=== PATIENT | male | born 1970 | race Two or more races ===

== ENCOUNTER 2024-04-18 11:14 | Inpatient (IN) | payer SELFPAY ==
[~2024-04-18] VITALS: Ht 170.2 cm; Wt 110.7 kg
[2024-04-18 11:17] VITALS: O2SAT 98
[2024-04-18] MEDS: ASPIRIN 81MG TABLET PO ONE (12:22)
[2024-04-18 12:39] LABS: CHLORIDE 101 mEq/L (98-107); POTASSIUM 3.9 mEq/L (3.5-5.1); SODIUM 134 mEq/L (136-145)
[2024-04-18 12:40] LABS: BASOPHILS % 0.4 % (0.0-2.0); CALCIUM 8.9 mg/dL (8.7-10.4); CARBON DIOXIDE 22 mEq/L (21-32); EOSINOPHILS % 0.2 % (0.0-5.0); HEMATOCRIT. 46.2 % (42.0-52.0); LYMPHOCYTES % 19.8 % (20.0-50.0); MEAN CORPUSCULAR HEMOGLOBIN 29.3 pg (28.0-32.0); MEAN CORPUSCULAR HGB CONC 32.5 g/dL (31.0-37.0); MEAN CORPUSCULAR VOLUME 90.3 fL (80.0-94.0); NEUTROPHILS % 66.6 % (40.0-76.0); PLATELET 383 x1000/uL (130-400); RED BLOOD CELL COUNT 5.12 mill/uL (4.7-6.1); WHITE BLOOD COUNT 9.4 x1000/uL (4.5-11.0)
[2024-04-18 12:45] LABS: CREATININE 1.2 mg/dL (0.6-1.3); GLUCOSE 120 mg/dL (70-105); TROPONIN I HIGH SENSITIVITY 14 ng/L (3.0-53); UREA NITROGEN BLOOD 13 mg/dL (9-23)
[2024-04-18 17:59] VITALS: BP 117/91; PULSE 107; RESP 18; TEMP 36.974
[2024-04-18 20:00] VITALS: BP 120/87; PULSE 108; RESP 18; TEMP 35.94732; O2SAT 97
[2024-04-18] MEDS ORDERED: GUAIFENESIN 200MG/10ML SUGAR FREE UDC PO PRN (21:45)
[2024-04-18] MEDS ORDERED: ACETAMINOPHEN 325MG TABLET PO PRN ×2 (21:45)
[2024-04-18] MEDS ORDERED: ONDANSETRON HCL 4MG/2ML INJ IV PRN (21:45)
[2024-04-18] MEDS ORDERED: IPRATROPIUM/ALBUTEROL 0.5-3(2.5)MG/3ML NEB HHN PRN (21:45)
[2024-04-18] MEDS ORDERED: IOHEXOL-350 100 ML BOTTLE ONE (23:19)
[2024-04-18 23:53] LABS: TROPONIN I HIGH SENSITIVITY 15 ng/L (3.0-53)
[2024-04-19] VITALS: BP 122/91; PULSE 102; RESP 19; TEMP 36.05844; O2SAT 96
[2024-04-19 04:00] VITALS: BP 120/89; PULSE 109; RESP 18; TEMP 36.3918; O2SAT 98
[2024-04-19] MEDS: ZOLPIDEM TARTRATE 5MG TABLET PO PRN (04:23)
[2024-04-19] MEDS: PNEUMOCOCCAL 20-VAL CONJ-DIP CRM 0.5ML IM ONE (05:44)
[2024-04-19] MEDS: INFLUENZA VACCINE 05/PF 0.5 ML SYRINGE IM ONE (05:45)
[2024-04-19 08:00] VITALS: BP 114/85; PULSE 114; RESP 20; TEMP 36.16956; O2SAT 97
[2024-04-19 08:49] LABS: TROPONIN I HIGH SENSITIVITY 10 ng/L (3.0-53)
[2024-04-19] MEDS: FUROSEMIDE 40MG/4ML VIAL IVP SCH (08:57)
[2024-04-19] MEDS: LISINOPRIL 5MG TABLET PO SCH (09:03)
[2024-04-19] MEDS: ENOXAPARIN 30MG/0.3ML SYR SUBCUT SCH (09:11)
[2024-04-19] MEDS: SPIRONOLACTONE 25MG TABLET PO SCH (09:12)
[2024-04-19 12:00] VITALS: BP 110/83; PULSE 115; RESP 20; TEMP 36.3918; O2SAT 98
[2024-04-19 16:00] VITALS: BP 109/81; PULSE 116; RESP 20; TEMP 36.61404; O2SAT 98
[2024-04-19 20:00] VITALS: BP 107/81; PULSE 122; RESP 20; TEMP 36.114; O2SAT 96
[2024-04-19] MEDS: FAMOTIDINE 20MG TABLET PO SCH (21:46)
[2024-04-20] VITALS (41 sets, daily range): BP systolic 107–142; BP diastolic 73–111; PULSE 100–115; RESP 12–30; TEMP 36.28068–36.9474; O2SAT 98–100
[2024-04-20 06:48] LABS: CARBON DIOXIDE 25 mEq/L (21-32); CHLORIDE 105 mEq/L (98-107); POTASSIUM 4.1 mEq/L (3.5-5.1); SODIUM 136 mEq/L (136-145)
[2024-04-20 06:49] LABS: CALCIUM 8.5 mg/dL (8.7-10.4)
[2024-04-20 06:53] LABS: CREATININE 1.1 mg/dL (0.6-1.3); GLUCOSE 106 mg/dL (70-105)
[2024-04-20 06:54] LABS: UREA NITROGEN BLOOD 12 mg/dL (9-23)
[2024-04-20 06:56] LABS: PHOSPHORUS 5.2 mg/dL (2.5-4.9)
[2024-04-20 06:58] LABS: THYROID STIMULATING HORMONE 1.64 uIU/mL (0.55-4.78)
[2024-04-20] MEDS: FUROSEMIDE 40MG/4ML VIAL IVP SCH (09:43)
[2024-04-20 13:31] LABS: BASOPHILS % 0.4 % (0.0-2.0); EOSINOPHILS % 0.6 % (0.0-5.0); HEMATOCRIT. 43.9 % (42.0-52.0); HEMOGLOBIN. 14.2 g/dL (14.0-18.0); LYMPHOCYTES % 13.6 % (20.0-50.0); MEAN CORPUSCULAR HEMOGLOBIN 28.8 pg (28.0-32.0); MEAN CORPUSCULAR HGB CONC 32.3 g/dL (31.0-37.0); MEAN PLATELET VOLUME 8.4 fl (7.4-10.4); MONOCYTES % 9.1 % (2.0-8.0); NEUTROPHILS % 76.3 % (40.0-76.0); PLATELET 333 x1000/uL (130-400); RED BLOOD CELL COUNT 4.94 mill/uL (4.7-6.1); RED CELL DISTRIBUTION WIDTH 16.6 % (11.6-14.6); WHITE BLOOD COUNT 10.2 x1000/uL (4.5-11.0)
[2024-04-20 13:35] LABS: TROPONIN I HIGH SENSITIVITY 4 ng/L (3.0-53)
[2024-04-20] MEDS: ASPIRIN 325MG EC TABLET PO NR (13:41)
[2024-04-20] MEDS ORDERED: TENECTEPLASE 50MG/VIAL IV ONE (14:00)
[2024-04-20 14:06] LABS: TRIGLYCERIDE 98 mg/dL (0-150)
[2024-04-20 14:07] LABS: LDL CHOLESTEROL 120 mg/dL (5-100)
[2024-04-20 14:08] LABS: CHOLESTEROL 151 mg/dL (<200); HDL CHOLESTEROL < 20 mg/dL (>55)
[2024-04-20] MEDS ORDERED: *TENECTEPLASE FOR AIS XX SCH (14:10)
[2024-04-20] MEDS: TENECTEPLASE 50MG/VIAL IV SCH (14:13)
[2024-04-20] MEDS ORDERED: LABETALOL 5MG/ML 4ML INJ IV PRN (14:30)
[2024-04-20] MEDS ORDERED: NICARDIPINE 40MG/200ML PREMIX 200 ML IV PRN (14:30)
[2024-04-20] MEDS ORDERED: IOHEXOL-350 100 ML BOTTLE ONE (15:05)
[2024-04-20] MEDS: MAGNESIUM 2 G PREMIX 50 ML IV SCH (15:28)
[2024-04-20 15:42] LABS: *AMPHETAMINES SCREEN URINE NEGATIVE (NEGATIVE); *BARBITURATES SCREEN URINE NEGATIVE (NEGATIVE); *BENZODIAZEPINES SCREEN URINE NEGATIVE (NEGATIVE); *COCAINE SCREEN URINE NEGATIVE (NEGATIVE)
[2024-04-20 15:43] LABS: CANNABINOID URINE SCREEN NEGATIVE (NEGATIVE); ECSTASY MDMA SCREEN URINE NEGATIVE (NEGATIVE); METHADONE URINE SCREEN NEGATIVE (NEGATIVE); OPIATES URINE SCREEN NEGATIVE (NEGATIVE); PHENCYCLIDINE URINE SCREEN NEGATIVE (NEGATIVE)
[2024-04-20 20:47] LABS: INR 1.1; PROTHROMBIN TIME 11.9 sec (9.6-11.0)
[2024-04-20 23:35] LABS: HEMATOCRIT 43.1 % (42.0-52.0); HEMOGLOBIN 14.1 g/dL (14.0-18.0)
[2024-04-21] VITALS (11 sets, daily range): BP systolic 115–125; BP diastolic 89–98; PULSE 103–108; RESP 18–30; TEMP 36.9474; O2SAT 100
== END 2024-04-21 02:45 | disposition short-term general hospital (02) | DRG 194 ==
LOC: ER 11:14 → 7EST 15:45 → EDBEDREQ 15:49 → EDBEDREQTM 15:49 → MICUSO 04-20 12:15
PROVIDERS: ADMIT Internal Medicine; ATTEND Internal Medicine
DX: I11.0 Hypertensive heart disease with heart failure (principal); I66.02 Occlusion and stenosis of left middle cerebral artery; I50.23 Acute on chronic systolic (congestive) heart failure; E66.01 Morbid (severe) obesity due to excess calories; K21.9 Gastro-esophageal reflux disease without esophagitis; Z68.38 Body mass index [BMI] 38.0-38.9, adult; Z82.49 Family history of ischemic heart disease and other diseases of the circulatory system
CPT/HCPCS: 36415; 70496; 70498; 71045; 71275; 80048; 80061; 80305; 82962; 83036; 83735; 83880; 84100; 84439; 84443; 84484; 85014; 85018; 85025; 85379; 90686; 90732; 93005; 99291; J1650; J1940; J3101; J3475; Q9967